=== PATIENT | female | born 1940 | race Caucasian/White ===

== ENCOUNTER 2022-03-09 09:16 | Day surgery (SDC) | payer MEDICARE, OTHER ==
[2022-03-08 15:55] VITALS: BMI 28.3
[~2022-03-09 09:16] MED LIST: EPINEPHrine 0.3 MG in Ophthalmic Irrigation Solution 500 ML IRR SCH; Midazolam HCl 2 mg/2 ml Vial ONE; fentaNYL PF 100 MCG/2 ML SYRINGE ONE
[2022-03-09] MEDS ORDERED: Cyclopentolate 1% Opth Drop 2 ML BOT ONE (10:10)
[2022-03-09] MEDS ORDERED: Phenylephrine 2.5% Ophth Soln 5 ML BOT ONE (10:10)
[2022-03-09] MEDS ORDERED: Bupivacaine 0.75% 10 ML VIAL ONE (11:18)
[2022-03-09] MEDS ORDERED: CEFAZOLIN 1 GM VIAL ONE (11:18)
[2022-03-09] MEDS ORDERED: Lidocaine 1% PF 5 ML VIAL ONE (11:18)
[2022-03-09] MEDS ORDERED: Triamcinolone 40 MG/ML VIAL ONE (11:18)
[2022-03-09] MEDS ORDERED: Indocyanine Green 25 MG/10 ML VIAL ONE (11:18)
[2022-03-09] MEDS ORDERED: PROPOFOL 200 MG/20 ML VIAL ONE (11:18)
[2022-03-09] MEDS ORDERED: Lidocaine 4% PF 5 ML AMP ONE (11:18)
[2022-03-09] MEDS ORDERED: Maxitrol 0.1% Opth Oint 3.5 GM TUBE ONE (11:18)
== END 2022-03-09 12:30 | disposition home or self-care (01) ==
LOC: SDC 09:16
PROVIDERS: ATTEND Ophthalmology Retina Specialist
PROC: 08T53ZZ Resection of Left Vitreous, Percutaneous Approach (ICD-10-PCS; principal; 2022-03-09)
PROC: 08NF3ZZ Release Left Retina, Percutaneous Approach (ICD-10-PCS; 2022-03-09)
DX: H35.372 Puckering of macula, left eye (principal); Z79.82 Long term (current) use of aspirin; Z79.899 Other long term (current) drug therapy; Z88.5 Allergy status to narcotic agent
CPT/HCPCS: J0171; J2250

== ENCOUNTER 2022-04-07 18:12 | Inpatient (IN) | payer MEDICARE, OTHER ==
[2022-04-07 22:27] VITALS: BMI 28.4
[2022-04-07] MEDS: Acetaminophen 325 MG TAB PO PRN (23:35)
[2022-04-07] MEDS ORDERED: hydrALAZINE 20 MG/ML VIAL SLOW IVP PRN (23:59)
[2022-04-08] MEDS ORDERED: hydrALAZINE 20 MG/ML VIAL SLOW IVP PRN (00:05)
[2022-04-08 07:52] LABS: #Basophils 0.1 thou/uL (0.0-0.2); #Eosinphils 0.3 thou/uL (0.0-0.7); #Lymphocytes 2.4 thou/uL (1.20-3.40); #Monocytes 0.7 thou/uL (0.11-0.59); #Neutrophils 4.6 thou/uL (1.40-6.50); %Basophils 0.8 % (0.0-1.0); %Eosinophils 3.3 % (0.0-10.0); %Monocytes 8.8 % (0.0-10.0); %Neutrophils 57.1 % (42.0-75.0); Hemoglobin 13.2 g/dL (12.0-16.0); Mean Corpuscular HGB CONC 33.3 g/dL (32.0-36.0); Mean Corpuscular Hemoglobin 31.8 pg (27.0-31.0); Mean Corpuscular Volume 95.4 fl (78.0-98.0); Mean Platelet Volume 7.4 fL (7.4-10.4); Platelet Count 226 10x3/uL (130-400); RBC Distribution Width 11.5 % (11.5-14.5); Red Blood Cell (RBC) Count 4.17 mill/uL (4.20-5.40); White Blood Cell (WBC) Count 8.1 10x3/uL (4.8-10.8)
[2022-04-08] MEDS ORDERED: cefTRIAXone\\ROCEPHIN 1 GM in Sodium Chloride 0.9% 100 ML IVPB SCH (08:00)
[2022-04-08 08:10] LABS: Anion Gap 13 mmol/L (10-20); BUN (Urea Nitrogen) 21 mg/dL (9.8-20.1); Calc. Creatinine Clearance 50 mL/min (70-130); Calcium 8.8 mg/dL (7.8-10.44); Carbon Dioxide 24 mmol/L (23-31); Chloride 102 mmol/L (98-107); Estimated GFR 53; Glucose 83 mg/dL (83-110); Sodium 135 mmol/L (136-145)
[2022-04-08] MEDS: Losartan 25 MG TAB PO SCH (08:20)
[2022-04-08] MEDS: Atenolol 25 MG TAB PO SCH (08:20)
[2022-04-08] MEDS: Aspirin Chewable 81 MG TAB PO SCH (08:20)
[2022-04-08] MEDS ORDERED: FLU VACC QS2022-23(65YR UP)/PF 240 MCG/0.7 ML SYRINGE IM ONE (09:00)
[2022-04-08] MEDS: prednisoLONE 1% Ophth Susp 5 ml Bottle EA EYE SCH (09:53)
[2022-04-08] MEDS: DorzolamidE/Timolol 2%/0.5% Ophth Soln 10 ml Bottle EA EYE SCH (09:53)
[2022-04-08] MEDS: Acetaminophen 325 MG TAB PO PRN (20:17)
[2022-04-08] MEDS: Atorvastatin Calcium 40 MG TAB PO SCH (20:18)
[2022-04-09] MEDS ORDERED: Sodium Chloride 0.9% 500 ML IV SCH (00:15)
[2022-04-09 00:51] LABS: Anion Gap 13 mmol/L (10-20); BUN (Urea Nitrogen) 23 mg/dL (9.8-20.1); Calc. Creatinine Clearance 42 mL/min (70-130); Calcium 8.7 mg/dL (7.8-10.44); Carbon Dioxide 22 mmol/L (23-31); Chloride 102 mmol/L (98-107); Estimated GFR 44; Glucose 91 mg/dL (83-110); Magnesium 1.6 mg/dL (1.6-2.6); Phosphorus 3.3 mg/dL (2.3-4.7); Sodium 133 mmol/L (136-145)
[2022-04-09] MEDS ORDERED: Metoprolol Tartrate 5 MG/5 ML VIAL IVP SCH (01:00)
[2022-04-09] MEDS ORDERED: Magnesium 2 GM/50 ML(in water) 2 GM in Premix Bag 1 BAG IVPB SCH (01:30)
[2022-04-09] MEDS ORDERED: Lactated Ringer's 500 ML IV SCH (01:30)
[2022-04-09 05:37] LABS: Hemoglobin A1c 4.8 % (4.0-6.0)
[2022-04-09 05:42] LABS: Cardiac Risk 3.4 (Less than 4.5)
[2022-04-09] MEDS: Losartan 25 MG TAB PO SCH (10:41)
[2022-04-09] MEDS: Aspirin Chewable 81 MG TAB PO SCH (10:42)
[2022-04-09] MEDS: Atenolol 25 MG TAB PO SCH (10:42)
[2022-04-09] MEDS: prednisoLONE 1% Ophth Susp 5 ml Bottle EA EYE SCH (10:43)
[2022-04-09] MEDS: DorzolamidE/Timolol 2%/0.5% Ophth Soln 10 ml Bottle EA EYE SCH (10:43)
[2022-04-09] MEDS: Apixaban 5 MG TAB PO SCH (21:08)
[2022-04-09] MEDS: Atorvastatin Calcium 40 MG TAB PO SCH (21:08)
[2022-04-09] MEDS: Flecainide 50 MG TAB PO SCH (21:08)
[2022-04-09] MEDS: Acetaminophen 325 MG TAB PO PRN (21:08)
[2022-04-10 05:38] LABS: #Basophils 0.1 thou/uL (0.0-0.2); #Eosinphils 0.3 thou/uL (0.0-0.7); #Lymphocytes 1.9 thou/uL (1.20-3.40); #Monocytes 0.8 thou/uL (0.11-0.59); #Neutrophils 3.6 thou/uL (1.40-6.50); %Basophils 0.8 % (0.0-1.0); %Eosinophils 4.9 % (0.0-10.0); %Lymphocytes 28.2 % (21.0-51.0); %Monocytes 11.7 % (0.0-10.0); %Neutrophils 54.4 % (42.0-75.0); Hemoglobin 13.5 g/dL (12.0-16.0); Mean Corpuscular HGB CONC 32.8 g/dL (32.0-36.0); Mean Corpuscular Hemoglobin 31.4 pg (27.0-31.0); Mean Corpuscular Volume 95.7 fl (78.0-98.0); Mean Platelet Volume 7.1 fL (7.4-10.4); Platelet Count 209 10x3/uL (130-400); RBC Distribution Width 11.5 % (11.5-14.5); White Blood Cell (WBC) Count 6.6 10x3/uL (4.8-10.8)
[2022-04-10 05:54] LABS: Anion Gap 12 mmol/L (10-20); BUN (Urea Nitrogen) 23 mg/dL (9.8-20.1); Calc. Creatinine Clearance 50 mL/min (70-130); Carbon Dioxide 24 mmol/L (23-31); Chloride 105 mmol/L (98-107); Estimated GFR 53; Glucose 88 mg/dL (83-110); Potassium 4.1 mmol/L (3.5-5.1); Sodium 137 mmol/L (136-145)
[2022-04-10] MEDS: prednisoLONE 1% Ophth Susp 5 ml Bottle EA EYE SCH (11:41)
[2022-04-10] MEDS: DorzolamidE/Timolol 2%/0.5% Ophth Soln 10 ml Bottle EA EYE SCH (11:41)
[2022-04-10] MEDS: Flecainide 50 MG TAB PO SCH ×2 (11:42→20:50)
[2022-04-10] MEDS: Apixaban 5 MG TAB PO SCH ×2 (11:42→20:50)
[2022-04-10] MEDS: Losartan 25 MG TAB PO SCH (11:42)
[2022-04-10] MEDS: Atorvastatin Calcium 40 MG TAB PO SCH (20:50)
[2022-04-11] MEDS: DorzolamidE/Timolol 2%/0.5% Ophth Soln 10 ml Bottle EA EYE SCH (09:09)
[2022-04-11] MEDS: Flecainide 50 MG TAB PO SCH (09:09)
[2022-04-11] MEDS: Apixaban 5 MG TAB PO SCH (09:09)
[2022-04-11] MEDS: prednisoLONE 1% Ophth Susp 5 ml Bottle EA EYE SCH (09:09)
[2022-04-11] MEDS: Losartan 25 MG TAB PO SCH (09:09)
[2022-04-11 15:54] VITALS: BP 153/89; TEMP 97.7
[2022-04-12] MEDS ORDERED: Amiodarone 200 MG TAB PO SCH (09:00)
== END 2022-04-11 18:45 | disposition home or self-care (01) | DRG 69 ==
LOC: NEURO 21:59 → OBSVTOIN 04-08 16:23
PROVIDERS: ADMIT Internal Medicine; ATTEND Internal Medicine
DX: G45.9 Transient cerebral ischemic attack, unspecified (principal); G93.41 Metabolic encephalopathy; I16.1 Hypertensive emergency; Z20.822 Contact with and (suspected) exposure to COVID-19; I48.0 Paroxysmal atrial fibrillation; I44.7 Left bundle-branch block, unspecified; Z28.21 Immunization not carried out because of patient refusal; Z88.5 Allergy status to narcotic agent; Z79.899 Other long term (current) drug therapy; Z79.82 Long term (current) use of aspirin; Z90.710 Acquired absence of both cervix and uterus; Z98.890 Other specified postprocedural states
CPT/HCPCS: 36415; 70551; 80048; 80061; 83036; 83735; 83880; 84100; 84145; 85025; 93005; 93010; 93306; 93880; J0696; J1650; J3475; J3490; J7030; J7120; U0003; U0005

== ENCOUNTER 2023-04-22 22:36 | Inpatient (IN) | payer MEDICARE, OTHER ==
[2023-04-23] MEDS ORDERED: Ondansetron ODT 4 MG TAB SL PRN (02:15)
[2023-04-23] MEDS ORDERED: Ondansetron PF 4 MG/2 ML Vial IVP PRN (02:15)
[2023-04-23] MEDS ORDERED: Acetaminophen 325 MG TAB PO PRN (02:15)
[2023-04-23 02:38] VITALS: BMI 25.0
[2023-04-23] MEDS ORDERED: Nitroglycerin 0.4 MG TAB (25 Tab Bottle) SL PRN (03:16)
[2023-04-23 04:57] LABS: #Eosinphils 0.2 thou/uL (0.0-0.7); #Monocytes 0.7 thou/uL (0.11-0.59); %Basophils 0.6 % (0.0-1.0); %Eosinophils 2.2 % (0.0-10.0); %Lymphocytes 26.7 % (21.0-51.0); %Monocytes 10.3 % (0.0-10.0); %Neutrophils 59.8 % (42.0-75.0); Hematocrit 36.2 % (36.0-47.0); Hemoglobin 11.4 g/dL (12.0-16.0); Mean Corpuscular HGB CONC 31.5 g/dL (32.0-36.0); Mean Corpuscular Hemoglobin 31.1 pg (27.0-31.0); Mean Corpuscular Volume 98.9 fl (78.0-98.0); Mean Platelet Volume 10.1 fL (7.4-10.4); Platelet Count 216 10x3/uL (130-400); RBC Distribution Width 12.9 % (11.5-14.5); Red Blood Cell (RBC) Count 3.66 mill/uL (4.20-5.40); White Blood Cell (WBC) Count 6.7 10x3/uL (4.8-10.8)
[2023-04-23 05:20] LABS: Anion Gap 14 mmol/L (10-20); BUN (Urea Nitrogen) 20 mg/dL (9.8-20.1); Calc. Creatinine Clearance 36 mL/min (70-130); Calcium 8.6 mg/dL (7.8-10.44); Carbon Dioxide 19 mmol/L (23-31); Chloride 112 mmol/L (98-107); Estimated GFR 43; Glucose 70 mg/dL (83-110); Sodium 142 mmol/L (136-145)
[2023-04-23] MEDS ORDERED: Electrolyte Replacement Protocol 1 EACH FS SCH (06:00)
[2023-04-23] MEDS ORDERED: Enoxaparin 80 MG (0.8 mL) SYRINGE SC SCH ×2 (06:00→21:00)
[2023-04-23 06:12] LABS: Magnesium 1.7 mg/dL (1.6-2.6)
[2023-04-23 06:59] LABS: Phosphorus 3.1 mg/dL (2.3-4.7)
[2023-04-23] MEDS ORDERED: Potassium Phosphate 30 MMOL in Sodium Chloride 0.9% 250 ML 250 ML IVPB SCH (08:00)
[2023-04-23] MEDS ORDERED: Magnesium 2 GM/50 ML(in water) 2 GM in Premix 1 BAG IVPB SCH (08:00)
[2023-04-23] MEDS: Aspirin Chewable 81 MG TAB PO SCH (09:26)
[2023-04-23] MEDS ORDERED: Cholecalciferol 1,000 UNITS (25 MCG) TAB PO SCH (10:15)
[2023-04-23] MEDS ORDERED: DorzolamidE/Timolol 2%/0.5% Ophth Soln 10 ml Bottle EA EYE SCH (10:15)
[2023-04-23] MEDS ORDERED: Amiodarone 200 MG TAB PO SCH ×2 (10:15→21:00)
[2023-04-23] MEDS ORDERED: Cholecalciferol (Vitamin D3) 400 UNITS TAB PO SCH (10:30)
[2023-04-23 10:41] LABS: Troponin I 0.131 ng/mL (< 0.028)
[2023-04-23] MEDS: Cephalexin 250 MG CAP PO SCH ×2 (12:19→18:24)
[2023-04-23] MEDS ORDERED: Empagliflozin 10 MG TAB PO SCH (12:34)
[2023-04-23] MEDS ORDERED: Furosemide 40 MG (4 mL) VIAL SLOW IVP SCH (12:45)
[2023-04-23 17:42] LABS: Potassium 3.8 mmol/L (3.5-5.1)
[2023-04-23] MEDS: Donepezil HCl 5 MG TAB PO SCH (21:57)
[2023-04-23] MEDS: Atorvastatin Calcium 40 MG TAB PO SCH (21:57)
[2023-04-23] MEDS: DorzolamidE/Timolol 2%/0.5% Ophth Soln 10 ml Bottle EA EYE SCH (22:03)
[2023-04-24] MEDS: Cephalexin 250 MG CAP PO SCH ×5 (00:15→22:47)
[2023-04-24] MEDS ORDERED: Atropine Sulfate 1 mg/1 ml Vial IVP PRN (04:28)
[2023-04-24 05:05] LABS: Hematocrit 42.7 % (36.0-47.0); Hemoglobin 13.5 g/dL (12.0-16.0); Platelet Count 259 10x3/uL (130-400)
[2023-04-24 05:25] LABS: Magnesium 2.1 mg/dL (1.6-2.6)
[2023-04-24] MEDS ORDERED: Enoxaparin 80 MG (0.8 mL) SYRINGE SC SCH (09:00)
[2023-04-24] MEDS: Amiodarone 200 MG TAB PO SCH (10:05)
[2023-04-24] MEDS: Empagliflozin 10 MG TAB PO SCH (10:05)
[2023-04-24] MEDS: Ferrous Gluconate 324 MG TAB PO SCH (10:05)
[2023-04-24] MEDS: Spironolactone 25 MG TAB PO SCH (10:05)
[2023-04-24] MEDS: Aspirin Chewable 81 MG TAB PO SCH (10:07)
[2023-04-24] MEDS: Losartan 25 MG TAB PO SCH (10:07)
[2023-04-24] MEDS: Cholecalciferol (Vitamin D3) 400 UNITS TAB PO SCH (10:07)
[2023-04-24] MEDS: DorzolamidE/Timolol 2%/0.5% Ophth Soln 10 ml Bottle EA EYE SCH ×2 (10:07→21:10)
[2023-04-24] MEDS ORDERED: Communication Order-Pharmacy FS SCH (13:30)
[2023-04-24] MEDS: Donepezil HCl 5 MG TAB PO SCH (21:10)
[2023-04-24] MEDS: Atorvastatin Calcium 40 MG TAB PO SCH (21:10)
[2023-04-25 05:27] LABS: Hematocrit 40.9 % (36.0-47.0); Hemoglobin 13.1 g/dL (12.0-16.0); Platelet Count 238 10x3/uL (130-400)
[2023-04-25 05:28] LABS: #Basophils 0.1 thou/uL (0.0-0.2); #Eosinphils 0.2 thou/uL (0.0-0.7); #Neutrophils 3.9 thou/uL (1.40-6.50); %Eosinophils 2.5 % (0.0-10.0); %Lymphocytes 29.4 % (21.0-51.0); %Monocytes 13.8 % (0.0-10.0); Hematocrit 41.1 % (36.0-47.0); Hemoglobin 13.1 g/dL (12.0-16.0); Mean Corpuscular HGB CONC 31.9 g/dL (32.0-36.0); Mean Corpuscular Hemoglobin 30.5 pg (27.0-31.0); Mean Corpuscular Volume 95.6 fl (78.0-98.0); Mean Platelet Volume 9.9 fL (7.4-10.4); Platelet Count 231 10x3/uL (130-400); RBC Distribution Width 12.8 % (11.5-14.5); White Blood Cell (WBC) Count 7.3 10x3/uL (4.8-10.8)
[2023-04-25] MEDS: Amiodarone 200 MG TAB PO SCH (05:54)
[2023-04-25] MEDS: Ferrous Gluconate 324 MG TAB PO SCH (05:54)
[2023-04-25] MEDS: Losartan 25 MG TAB PO SCH (05:54)
[2023-04-25] MEDS: Cephalexin 250 MG CAP PO SCH ×4 (05:54→22:35)
[2023-04-25 05:55] LABS: Anion Gap 15 mmol/L (10-20); BUN (Urea Nitrogen) 35 mg/dL (9.8-20.1); Calc. Creatinine Clearance 25 mL/min (70-130); Calcium 8.7 mg/dL (7.8-10.44); Carbon Dioxide 17 mmol/L (23-31); Chloride 108 mmol/L (98-107); Estimated GFR 27; Glucose 94 mg/dL (83-110); Sodium 136 mmol/L (136-145)
[2023-04-25] MEDS: Aspirin Chewable 81 MG TAB PO SCH (05:55)
[2023-04-25] MEDS ORDERED: Sodium Chloride 0.9% 1,000 ML IV SCH (06:00)
[2023-04-25] MEDS ORDERED: Heparin 10,000 UNITS/ 10 ML VIAL ONE (07:15)
[2023-04-25] MEDS ORDERED: Nitroglycerin 50 MG/250 ML BOT 0 ML ONE (07:15)
[2023-04-25] MEDS ORDERED: Lidocaine 1% (PF) 30 ML VIAL ONE (07:15)
[2023-04-25] MEDS: Empagliflozin 10 MG TAB PO SCH (08:34)
[2023-04-25] MEDS: Spironolactone 25 MG TAB PO SCH (08:34)
[2023-04-25] MEDS: DorzolamidE/Timolol 2%/0.5% Ophth Soln 10 ml Bottle EA EYE SCH ×2 (08:34→21:30)
[2023-04-25] MEDS: Cholecalciferol (Vitamin D3) 400 UNITS TAB PO SCH (08:35)
[2023-04-25] MEDS ORDERED: fentaNYL 50 mcg/mL 1 mL Vial ONE (09:16)
[2023-04-25] MEDS ORDERED: Midazolam HCl 2 mg/2 ml Vial ONE (09:17)
[2023-04-25] MEDS ORDERED: Atropine Sulfate 1 mg/10 ml Syringe ONE (09:39)
[2023-04-25] MEDS ORDERED: Iopamidol 370 76% 100 ML VIAL ONE (09:57)
[2023-04-25] MEDS ORDERED: Sodium Chloride 0.9% 200 ML IV PRN (10:07)
[2023-04-25] MEDS ORDERED: Nitroglycerin 0.4 MG TAB (25 Tab Bottle) SL PRN (10:07)
[2023-04-25] MEDS: Donepezil HCl 5 MG TAB PO SCH (21:31)
[2023-04-25] MEDS: Atorvastatin Calcium 40 MG TAB PO SCH (21:31)
[2023-04-26 03:54] LABS: #Basophils 0.1 thou/uL (0.0-0.2); #Eosinphils 0.1 thou/uL (0.0-0.7); #Monocytes 0.8 thou/uL (0.11-0.59); #Neutrophils 5.9 thou/uL (1.40-6.50); %Basophils 0.8 % (0.0-1.0); %Eosinophils 1.6 % (0.0-10.0); %Lymphocytes 22.2 % (21.0-51.0); %Monocytes 8.5 % (0.0-10.0); %Neutrophils 66.6 % (42.0-75.0); Hematocrit 39.9 % (36.0-47.0); Hemoglobin 12.5 g/dL (12.0-16.0); Mean Corpuscular HGB CONC 31.3 g/dL (32.0-36.0); Mean Corpuscular Hemoglobin 30.9 pg (27.0-31.0); Mean Platelet Volume 9.8 fL (7.4-10.4); Platelet Count 234 10x3/uL (130-400); RBC Distribution Width 12.9 % (11.5-14.5); Red Blood Cell (RBC) Count 4.04 mill/uL (4.20-5.40); White Blood Cell (WBC) Count 8.9 10x3/uL (4.8-10.8)
[2023-04-26 04:36] LABS: Anion Gap 13 mmol/L (10-20); BUN (Urea Nitrogen) 28 mg/dL (9.8-20.1); Calc. Creatinine Clearance 28 mL/min (70-130); Calcium 8.5 mg/dL (7.8-10.44); Carbon Dioxide 18 mmol/L (23-31); Chloride 110 mmol/L (98-107); Estimated GFR 31; Glucose 89 mg/dL (83-110); Potassium 4.5 mmol/L (3.5-5.1); Sodium 136 mmol/L (136-145)
[2023-04-26 04:41] LABS: Mean Corpuscular Volume 98.8 fl (78.0-98.0)
[2023-04-26] MEDS: Cephalexin 250 MG CAP PO SCH ×4 (05:39→23:11)
[2023-04-26] MEDS ORDERED: Magnesium 2 GM/50 ML(in water) 2 GM in Premix 1 BAG IVPB SCH (08:00)
[2023-04-26] MEDS: Ferrous Gluconate 324 MG TAB PO SCH (08:07)
[2023-04-26] MEDS: Cholecalciferol (Vitamin D3) 400 UNITS TAB PO SCH (08:07)
[2023-04-26] MEDS: Aspirin Chewable 81 MG TAB PO SCH (08:07)
[2023-04-26] MEDS: Empagliflozin 10 MG TAB PO SCH (08:57)
[2023-04-26] MEDS: Losartan 25 MG TAB PO SCH (08:57)
[2023-04-26] MEDS: Spironolactone 25 MG TAB PO SCH (08:57)
[2023-04-26] MEDS: Amiodarone 200 MG TAB PO SCH (08:58)
[2023-04-26] MEDS: Sodium Chloride 0.9% 1,000 ML IV SCH ×2 (09:00→20:58)
[2023-04-26] MEDS ORDERED: Iopamidol 370 76% 100 ML VIAL ONE (09:21)
[2023-04-26] MEDS: DorzolamidE/Timolol 2%/0.5% Ophth Soln 10 ml Bottle EA EYE SCH ×2 (09:50→21:04)
[2023-04-26] MEDS ORDERED: Vancomycin 1 GM in Premix 1 BAG IVPB SCH (10:00)
[2023-04-26] MEDS ORDERED: Lidocaine 1% (PF) 30 ML VIAL ONE (11:16)
[2023-04-26] MEDS ORDERED: CEFAZOLIN 2 GM VIAL ONE (11:16)
[2023-04-26] MEDS ORDERED: Gentamicin 80 MG/2 ML VIAL ONE (11:16)
[2023-04-26] MEDS ORDERED: fentaNYL 50 mcg/mL 1 mL Vial ONE ×2 (13:53→15:25)
[2023-04-26] MEDS ORDERED: Ketamine In 0.9 % NaCl 50 MG/5 ML SYRINGE ONE (13:53)
[2023-04-26] MEDS ORDERED: ePHEDrine/0.9% NaCl/PF SYRINGE 50 mg/10 ml ONE (14:10)
[2023-04-26] MEDS ORDERED: Dexamethasone 20 MG/5 ML VIAL ONE (14:10)
[2023-04-26] MEDS ORDERED: PHENYLEPHRINE-NS 100 MCG/ML 10 ML SYRINGE ONE (14:10)
[2023-04-26] MEDS ORDERED: PROPOFOL 200 MG/20 ML VIAL ONE (14:10)
[2023-04-26] MEDS ORDERED: Vancomycin HCl 500 MG VIAL ONE (14:23)
[2023-04-26] MEDS: Acetaminophen 650 MG/20.3 ML UDCUP PO PRN (18:42)
[2023-04-26] MEDS: Atorvastatin Calcium 40 MG TAB PO SCH (20:57)
[2023-04-26] MEDS: Donepezil HCl 5 MG TAB PO SCH (20:57)
[2023-04-27] MEDS: Acetaminophen 650 MG/20.3 ML UDCUP PO PRN (01:24)
[2023-04-27] MEDS: Sodium Chloride 0.9% 1,000 ML IV SCH (01:32)
[2023-04-27] MEDS ORDERED: Phenol 177 ML BOT PO PRN (01:52)
[2023-04-27] MEDS: Cephalexin 250 MG CAP PO SCH (05:07)
[2023-04-27 05:40] LABS: #Monocytes 0.3 thou/uL (0.11-0.59); #Neutrophils 8.8 thou/uL (1.40-6.50); %Basophils 0.2 % (0.0-1.0); %Lymphocytes 8.5 % (21.0-51.0); %Monocytes 3.1 % (0.0-10.0); %Neutrophils 87.9 % (42.0-75.0); Hematocrit 39.6 % (36.0-47.0); Hemoglobin 12.5 g/dL (12.0-16.0); Mean Corpuscular HGB CONC 31.6 g/dL (32.0-36.0); Mean Corpuscular Hemoglobin 30.4 pg (27.0-31.0); Mean Corpuscular Volume 96.4 fl (78.0-98.0); Mean Platelet Volume 10.1 fL (7.4-10.4); Platelet Count 228 10x3/uL (130-400); RBC Distribution Width 12.8 % (11.5-14.5); Red Blood Cell (RBC) Count 4.11 mill/uL (4.20-5.40)
[2023-04-27 06:08] LABS: Anion Gap 12 mmol/L (10-20); BUN (Urea Nitrogen) 24 mg/dL (9.8-20.1); Calc. Creatinine Clearance 36 mL/min (70-130); Calcium 8.2 mg/dL (7.8-10.44); Carbon Dioxide 15 mmol/L (23-31); Chloride 112 mmol/L (98-107); Estimated GFR 42; Glucose 123 mg/dL (83-110); Potassium 4.3 mmol/L (3.5-5.1); Sodium 135 mmol/L (136-145)
[2023-04-27] MEDS: Ferrous Gluconate 324 MG TAB PO SCH (09:53)
[2023-04-27] MEDS: Losartan 25 MG TAB PO SCH (09:53)
[2023-04-27] MEDS: Empagliflozin 10 MG TAB PO SCH (09:53)
[2023-04-27] MEDS: Amiodarone 200 MG TAB PO SCH (09:53)
[2023-04-27] MEDS: Cholecalciferol (Vitamin D3) 400 UNITS TAB PO SCH (09:54)
[2023-04-27] MEDS: Spironolactone 25 MG TAB PO SCH (09:54)
[2023-04-27] MEDS: DorzolamidE/Timolol 2%/0.5% Ophth Soln 10 ml Bottle EA EYE SCH (09:54)
[2023-04-27] MEDS: Aspirin Chewable 81 MG TAB PO SCH (09:54)
[2023-04-27 11:21] VITALS: BP 130/64; TEMP 97.6
[2023-05-01] MEDS ORDERED: Apixaban 2.5 MG TAB PO SCH (09:00)
== END 2023-04-27 13:13 | disposition home or self-care (01) | DRG 242 ==
LOC: 2NO 04-23 02:05 → OBSVTOIN 04-24 13:24
PROVIDERS: ADMIT Student in an Organized Health Care Education/Training Program; ATTEND Internal Medicine
PROC: 4A023N7 Measurement of Cardiac Sampling and Pressure, Left Heart, Percutaneous Approach (ICD-10-PCS; principal; 2023-04-24)
PROC: B2111ZZ Fluoroscopy of Multiple Coronary Arteries using Low Osmolar Contrast (ICD-10-PCS; 2023-04-24)
PROC: B2151ZZ Fluoroscopy of Left Heart using Low Osmolar Contrast (ICD-10-PCS; 2023-04-24)
PROC: 0JH607Z Insertion of Cardiac Resynchronization Pacemaker Pulse Generator into Chest Subcutaneous Tissue and Fascia, Open Approach (ICD-10-PCS; 2023-04-26)
PROC: 02H60JZ Insertion of Pacemaker Lead into Right Atrium, Open Approach (ICD-10-PCS; 2023-04-26)
PROC: 02HL3JZ Insertion of Pacemaker Lead into Left Ventricle, Percutaneous Approach (ICD-10-PCS; 2023-04-26)
PROC: 02HK3JZ Insertion of Pacemaker Lead into Right Ventricle, Percutaneous Approach (ICD-10-PCS; 2023-04-26)
PROC: 3E0102A Introduction of Anti-Infective Envelope into Subcutaneous Tissue, Open Approach (ICD-10-PCS; 2023-04-26)
PROC: 3E033XZ Introduction of Vasopressor into Peripheral Vein, Percutaneous Approach (ICD-10-PCS; 2023-04-26)
DX: I21.4 Non-ST elevation (NSTEMI) myocardial infarction (principal); I50.43 Acute on chronic combined systolic (congestive) and diastolic (congestive) heart failure; I13.0 Hypertensive heart and chronic kidney disease with heart failure and stage 1 through stage 4 chronic kidney disease, or unspecified chronic kidney disease; N17.9 Acute kidney failure, unspecified; E87.1 Hypo-osmolality and hyponatremia; Z96.653 Presence of artificial knee joint, bilateral; I16.0 Hypertensive urgency; N18.30 Chronic kidney disease, stage 3 unspecified; F03.90 Unspecified dementia, unspecified severity, without behavioral disturbance, psychotic disturbance, mood disturbance, and anxiety; H40.9 Unspecified glaucoma; E78.5 Hyperlipidemia, unspecified; I48.0 Paroxysmal atrial fibrillation; Z66 Do not resuscitate; I44.7 Left bundle-branch block, unspecified; I49.5 Sick sinus syndrome; E87.6 Hypokalemia; Z88.5 Allergy status to narcotic agent; Z88.6 Allergy status to analgesic agent; Z79.899 Other long term (current) drug therapy; Z90.710 Acquired absence of both cervix and uterus; Z98.890 Other specified postprocedural states
CPT/HCPCS: 33208; 33225; 36415; 71045; 80048; 82565; 83735; 83880; 84100; 84443; 84484; 85014; 85018; 85025; 85049; 93306; 93458; 93798; 94760; 96372; 96374; 96375; 99152; 99153; C1769; C1894; C1898; C1900; C2621; G0378; J0461; J1100; J1580; J1644; J1650; J1940; J2001; J2250; J2704; J3010; J3370; J3475; J3490; J7050; Q9967